=== PATIENT | female | born 1970 | race Caucasian/White ===

== ENCOUNTER 2019-03-20 06:16 | Day surgery (SDC) | payer OTHER ==
[~2019-03-20 06:16] MED LIST: ACETAMINOPHEN 500 MG TAB PO
[2019-03-20] MEDS ORDERED: ACETAMINOPHEN 500 MG TAB PO (06:30)
[2019-03-20] MEDS ORDERED: ONDANSETRON 4 MG INJ IV (07:30)
[2019-03-20] MEDS ORDERED: PROPOFOL 40 ML (07:30)
[2019-03-20] MEDS ORDERED: FENTAnyl 50 MCG/ML VIAL (07:30)
[2019-03-20] MEDS ORDERED: LIDOCAINE 2% (SDV) 5 ML INJ (07:30)
[2019-03-20] MEDS ORDERED: MEPERIDINE 25 MG INJ IV (07:30)
[2019-03-20] MEDS ORDERED: LABETALOL HCL 20MG INJ IV (07:30)
[2019-03-20] MEDS ORDERED: ALBUTEROL 0.083% (NEB) 2.5 MG/3 ML AMP HHN (07:30)
[2019-03-20] MEDS ORDERED: OXYCODONE/ACETAMINOPHEN (5/325) TAB PO ×2 (07:30)
[2019-03-20] MEDS ORDERED: METOCLOPRAMIDE 10 MG INJ (07:30)
[2019-03-20] MEDS ORDERED: FAMOTIDINE 20 MG INJ (07:30)
[2019-03-20] MEDS ORDERED: FENTAnyl 50 MCG/ML VIAL IV ×2 (07:30)
[2019-03-20] MEDS ORDERED: DIPHENHYDRAMINE 50 MG INJ IV (07:30)
[2019-03-20] MEDS ORDERED: HYDROmorphONE 1 MG/5 ML IV SYRINGE IV ×3 (07:30)
[2019-03-20] MEDS ORDERED: morphine (1 MG/ML) 10ML SYRINGE IV ×2 (07:30)
[2019-03-20] MEDS ORDERED: CEFAZOLIN 1 GM INJ (07:30)
[2019-03-20] MEDS ORDERED: MIDAZOLAM 1 MG/ML 2 ML INJ (07:30)
[2019-03-20] MEDS ORDERED: ONDANSETRON 4 MG INJ (08:04)
[2019-03-20] MEDS ORDERED: PHENYLephrine (100 MCG/ML) 10ML SYG (08:15)
[2019-03-20] MEDS ORDERED: KETOROLAC 30 MG INJ (08:26)
== END 2019-03-20 10:34 | disposition home or self-care (01) ==
LOC: SDS 06:16
DX: N92.1 Excessive and frequent menstruation with irregular cycle (principal); D25.9 Leiomyoma of uterus, unspecified; D64.9 Anemia, unspecified; N85.2 Hypertrophy of uterus
CPT/HCPCS: 58558; 88305